=== PATIENT | male | born 1995 | race Asian ===

== ENCOUNTER 2025-07-25 06:18 | Emergency (ER) | payer SELFPAY ==
[~2025-07-25] VITALS: Ht 167.6 cm; Wt 57.4 kg
[2025-07-25 06:21] VITALS: O2SAT 100
[2025-07-25] MEDS: ONDANSETRON 4MG ODT PO ONE (06:52)
[2025-07-25 07:37] VITALS: BP 122/77; PULSE 91; RESP 10; TEMP 36.6; O2SAT 98
[2025-07-25] MEDS: METHADONE HCL 10MG TABLET PO SCH (07:37)
== END 2025-07-25 07:41 | disposition home or self-care (01) ==
LOC: ER 06:18
DX: F11.23 Opioid dependence with withdrawal (principal); R11.0 Nausea
CPT/HCPCS: 99283; Q0162